=== PATIENT | female | born 1955 | race Two or more races ===

== ENCOUNTER 2017-11-24 11:29 | Emergency (ER) | payer OTHER ==
[~2017-11-24] VITALS: Ht 165.1 cm; Wt 64.4 kg
== END 2017-11-24 14:31 | disposition home or self-care (01) ==
LOC: ER 11:29
DX: S60.222A Contusion of left hand, initial encounter (principal); W18.39XA Other fall on same level, initial encounter; Y93.89 Activity, other specified; Y92.091 Bathroom in other non-institutional residence as the place of occurrence of the external cause; Y99.8 Other external cause status